=== PATIENT | female | born 1965 | race Caucasian/White ===

== ENCOUNTER → 2018-08-13 | Outpatient (CLI) | payer BC, OTHER | LOC: CAT 16:36 | DX: K44.9 Diaphragmatic hernia without obstruction or gangrene (principal); Z68.25 Body mass index [BMI] 25.0-25.9, adult ==

== ENCOUNTER → 2021-07-03 | Outpatient (CLI) | payer OTHER | LOC: RAD 17:06 | PROVIDERS: ATTEND Nurse Practitioner | DX: M79.89 Other specified soft tissue disorders (principal) ==